=== PATIENT | female | born 1980 | race African-American/Black ===

== ENCOUNTER 2017-08-08 12:58 | Outpatient (RCR) | payer OTHER ==
[~2017-08-08 12:58] MED LIST: PRENATAL1 TA1 PO
== END 2017-08-15 10:43 ==
LOC: WSOH 12:58
DX: S46.911A Strain of unspecified muscle, fascia and tendon at shoulder and upper arm level, right arm, initial encounter (principal); X50.3XXA Overexertion from repetitive movements, initial encounter; Y99.0 Civilian activity done for income or pay

== ENCOUNTER → 2017-09-19 | Outpatient (CLI) | payer OTHER | LOC: COL.RAD 09:15 | DX: H91.8X2 Other specified hearing loss, left ear (principal) | CPT/HCPCS: A9585 ==

== ENCOUNTER 2017-10-24 13:01 | Outpatient (CLI) | payer OTHER ==
[~2017-10-24] VITALS: Ht 152.4 cm; Wt 97.5 kg
[~2017-10-24 13:01] MED LIST changes: +VITAMIN D 400400 IU PO
[2017-10-24 13:22] VITALS: BP 127/87; PULSE 74
[2017-10-24 14:40] VITALS: BP 136/84; PULSE 68; PULSE 69
[2017-10-24 15:16] VITALS: BP 124/89; PULSE 67
[2017-10-24 15:31] VITALS: BP 126/86; PULSE 72
[2017-10-24 15:50] VITALS: BP 119/76; PULSE 83
[2017-10-24 16:05] VITALS: BP 117/80; PULSE 76
== END 2017-10-24 16:29 | disposition home or self-care (01) ==
LOC: COL.RAD 13:01
DX: R90.82 White matter disease, unspecified (principal); H93.12 Tinnitus, left ear

== ENCOUNTER 2021-05-03 02:00 | Inpatient (IN) | payer MEDICAID ==
[2021-05-03] VITALS (22 sets, daily range): BP systolic 121–158; BP diastolic 68–93; PULSE 74–109; TEMP 97.7
[~2021-05-03] VITALS: Ht 152.4 cm; Wt 107.3 kg
--- NOTE | 2021-05-03 03:05 | NUR ---
Dr Yates @ bedside. Reviews pt history with pt. Bedside sono reveals breech presentation. SVE by Dr Yates, closed.
[2021-05-03 03:08] LABS: BASO % 0.2 % (0.0-2.0); EOS # 0.1 K/mm3 (0.0-0.7); EOS % 0.8 % (0.0-4.0); GRAN # 6.7 K/mm3 (1.4-6.5); HEMOGLOBIN 11.9 g/dl (12.5-16.0); LYMPH # 1.2 K/mm3 (1.2-3.4); MEAN CELL VOLUME 88 fl (80.0-100.0); MEAN CORPUSCULAR HEMOGLOBIN 30 pg (27-31); MEAN CORPUSCULAR HGB CONC 34 g/dl (33.0-37.0); MEAN PLATELET VOLUME 11.2 fl (7.4-10.4); MONO # 0.6 K/mm3 (0.1-0.6); MONO % 7.3 % (1.7-9.3); PLATELET COUNT 197 K/mm3 (130-400); RED BLOOD COUNT 3.92 M/mm3 (4.10-5.30); REDCELL DISTRIBUTION WIDTH-CV 13.2 % (11.5-14.5)
[2021-05-03 03:27] LABS: ALBUMIN 2.5 gm/dL (3.5-5.0); BILIRUBIN,TOTAL 0.3 mg/dL (0.2-1.2); CALCIUM 10.1 mg/dL (8.4-10.2); CREATININE, serum 0.57 mg/dL (0.57-1.11); POTASSIUM 3.8 mmol/L (3.5-4.5)
[2021-05-03 03:28] LABS: HEMATOCRIT 34.6 % (37.0-47.0)
[2021-05-03] MEDS ORDERED: GLUCOPHAGE500 MG/TAB PO ×2 (05:02→05:03)
[2021-05-03] MEDS ORDERED: PRENATAL TABLET PO (05:04)
[2021-05-03] MEDS ORDERED: INSULIN SQ ×2 (05:07→05:08)
--- NOTE | 2021-05-03 05:25 | NUR ---
Incision site scrubbed with Chlorohexadine x3 min with RN holding up pannus. Wash cloth placed under pannus.
--- NOTE | 2021-05-03 13:30 | NUR ---
Pt up to the bathroom wtih standby assist and without complications. Krishna removed. Ofelia-care done. Assist pt to the wheelchair and to the nursery.
[2021-05-04 00:28] VITALS: BP 134/74; PULSE 87
[2021-05-04 05:25] VITALS: BP 126/69; PULSE 89; TEMP 98.1
[2021-05-04 07:52] VITALS: BP 130/80; PULSE 88; TEMP 98
--- NOTE | 2021-05-04 09:58 | NUR ---
Initial visit attempt; Family resting, [employer] left card of congratulations for the of their daughter and information regarding the availability of spiritual care at [facility].
[2021-05-04 10:22] LABS: HEMOGLOBIN 11.4 g/dl (12.5-16.0)
[2021-05-04 10:24] LABS: HEMATOCRIT 33.3 % (37.0-47.0)
[2021-05-04] MEDS ORDERED: PERCOCET 325 MG1 TA2 PO (11:05)
[2021-05-04] MEDS ORDERED: IBU600 MG PO (11:05)
[2021-05-04 16:30] VITALS: BP 132/79; PULSE 96; TEMP 97.6
--- NOTE | 2021-05-04 17:35 | NUR ---
PTS FAST BLOOD SUGAR 111, BREAKFAST 2HRPP 151, LUNCH 2HRPP 111
[2021-05-04 20:05] VITALS: BP 129/72; PULSE 92; TEMP 97.9
[2021-05-05 07:00] VITALS: BP 135/76; PULSE 93; TEMP 98.2
[2021-05-05 16:30] VITALS: BP 142/75; PULSE 91; TEMP 98
--- NOTE | 2021-05-05 18:30 | NUR ---
Report recieved. Resting in bed at this time. POC reviewed and whiteboard updated.
[2021-05-05 19:20] VITALS: BP 138/87; PULSE 87; TEMP 98.4
--- NOTE | 2021-05-05 19:20 | NUR ---
2HR PP 99 AT THIS TIME. VS AND ASSESSMENT COMPLETED.
[2021-05-06 09:00] VITALS: BP 138/79; PULSE 87; TEMP 97.7
== END 2021-05-06 13:35 | disposition home or self-care (01) | DRG 788 ==
LOC: LDRO 02:00 → OB 02:53 → LDR 02:53 → OB 09:07
PROVIDERS: ADMIT Obstetrics & Gynecology
PROC: 10D00Z1 Extraction of Products of Conception, Low, Open Approach (ICD-10-PCS; principal; 2021-05-03)
DX: O40.3XX0 Polyhydramnios, third trimester, not applicable or unspecified (principal); O24.425 Gestational diabetes mellitus in childbirth, controlled by oral hypoglycemic drugs; O34.13 Maternal care for benign tumor of corpus uteri, third trimester; D25.9 Leiomyoma of uterus, unspecified; O32.0XX0 Maternal care for unstable lie, not applicable or unspecified; O34.211 Maternal care for low transverse scar from previous cesarean delivery; O32.1XX0 Maternal care for breech presentation, not applicable or unspecified; Z37.0 Single live birth; Z3A.37 37 weeks gestation of pregnancy
CPT/HCPCS: J0171; J0690; J1885; J2175; J2250; J2370; J2405; J2590; J7120